=== PATIENT | female | born 1980 | race Caucasian/White ===

== ENCOUNTER 2016-11-18 15:53 | Emergency (ER) | payer MEDICARE, MEDICAID ==
--- NOTE | 2016-11-18 16:43 | ER Document Report ---
ED Medical Screen (RME) - General Chief Complaint: Abdominal Pain Stated Complaint: ABDOMINAL PAIN Notes: 35-year-old female with MS complaining of two-day history of anterior abdominal pain from the ribs down to the pelvis. Worse on the left than the right. Made worse with movement and certain positions. He also reports noticed spotting from the rectal and vaginal areas. It is difficulty passing urine, feels like she has to go all the time but there is nothing there. She has had a hysterectomy in the past. I have greeted and performed a rapid initial assessment of this patient. A comprehensive ED assessment and evaluation of the patient, analysis of test results and completion of the medical decision making process will be conducted by additional ED providers. TRAVEL OUTSIDE OF THE [place] IN LAST 30 DAYS: No - Related Data Allergies/Adverse Reactions: iodine [Iodine] Allergy (Severe, Verified 11/18/16 16:34) Anaphylaxis nitrofurantoin [From Macrobid] Allergy (Verified 11/18/16 16:34) nitrofurantoin macrocrystalline [From Macrobid] Allergy (Verified 11/18/16 16:34 ) Sulfa (Sulfonamide Antibiotics) Adverse Reaction (Intermediate, Verified 16:34) VOMITING Past Medical History Pulmonary Medical History: Reports: Hx Asthma, Hx Pneumonia - 2008 Neurological Medical History: Reports: Hx Migraine, Hx Seizures Renal/ Medical History: Denies: Hx Peritoneal Dialysis Malignancy Medical History: Reports: Hx Cervical Cancer Psychiatric Medical History: Reports: Hx Anxiety, Hx Attention Deficit Hyperactivity Disorder, Hx Bipolar Disorder Past Surgical History: Reports: Hx Abdominal Surgery - Abdominal plastic, Hx Appendectomy, Hx Gynecologic Surgery - Mass removed from Fallopian Tube;, Hx Hysterectomy - Immunizations Immunizations up to date: Yes Hx Diphtheria, Pertussis, Tetanus Vaccination: Yes Physical Exam - Vital signs Vitals: Temp Pulse Resp BP Pulse Ox 98.4 F 86 14 118/72 99 11/18/16 16:09 11/18/16 16:09 11/18/16 16:11/18/16 16:09 11/18/16 16:09 Course - Vital Signs Vital signs: Temp Pulse Resp BP Pulse Ox 98.4 F 86 14 118/72 99 11/18/16 16:09 11/18/16 16:09 11/18/16 16:09 11/18/16 16:09 11/18/16 16:09
[2016-11-18 17:17] LABS: ABSOLUTE BASOPHILS # (AUTO) 0.1 10^3/uL (0.0-0.2); ABSOLUTE EOSINOPHILS # (AUTO) 0.2 10^3/uL (0.0-0.6); ABSOLUTE LYMPHOCYTES (AUTO) 3.4 10^3/uL (0.5-4.7); ABSOLUTE MONOCYTES (AUTO) 0.7 10^3/uL (0.1-1.4); ABSOLUTE NEUT (AUTO) 6.4 10^3/uL (1.7-8.2); BASOPHILS % (AUTO) 0.6 % (0-2); EOSINOPHILS % (AUTO) 1.8 % (0-6); HEMATOCRIT 43.4 % (36.0-47.0); HEMOGLOBIN 14.8 g/dL (12.0-15.5); LYMPHOCYTES % (AUTO) 31.3 % (13-45); MEAN CORPUSCULAR HEMOGLOBIN 30.4 pg (27.0-33.4); MEAN CORPUSCULAR HGB CONC 34.2 g/dL (32.0-36.0); MEAN CORPUSCULAR VOLUME 89 fl (80-97); MONOCYTES % (AUTO) 6.4 % (3-13); RED BLOOD COUNT 4.88 10^6/uL (3.72-5.28); RED CELL DISTRIBUTION WIDTH 13.7 % (11.5-14.0); SEGMENTED NEUTROPHILS % (AUTO) 59.9 % (42-78); WHITE BLOOD COUNT 10.7 10^3/uL (4.0-10.5)
[2016-11-18 17:25] LABS: APPEARANCE,URINE SLIGHTLY-CLOUDY; BILIRUBIN,URINE NEGATIVE (NEGATIVE); GLUCOSE, URINE NEGATIVE (NEGATIVE); KETONES,URINE NEGATIVE (NEGATIVE); LEUKOCYTE ESTERASE,URINE NEGATIVE (NEGATIVE); NITRITE,URINE NEGATIVE (NEGATIVE); PROTEIN,URINE NEGATIVE (NEGATIVE); URINE SPECIFIC GRAVITY 1.014
[2016-11-18 17:36] LABS: ALANINE AMINOTRANSFERASE 22 U/L (9-52); ALBUMIN 4.4 g/dL (3.5-5.0); ALKALINE PHOSPHATASE 64 U/L (38-126); ANION GAP 15 (5-19); ASPARTATE AMINO TRANSFERASE 22 U/L (14-36); BILIRUBIN,DIRECT 0.3 mg/dL (0.0-0.4); BILIRUBIN,TOTAL 0.5 mg/dL (0.2-1.3); BLOOD UREA NITROGEN 12 mg/dL (7-20); CALCIUM 9.8 mg/dL (8.4-10.2); CARBON DIOXIDE 27 mmol/L (22-30); CHLORIDE 102 mmol/L (98-107); CREATININE RESULT 0.98 mg/dL (0.52-1.25); GLUCOSE 75 mg/dL (75-110); POTASSIUM 4.2 mmol/L (3.6-5.0); SODIUM 143.6 mmol/L (137-145); TOTAL PROTEIN 7.1 g/dL (6.3-8.2)
[2016-11-18] MEDS ORDERED: KETOROLAC TROMETHAMINE INJ/PF 30 MG/1 ML SDV IV ONE (18:51)
[2016-11-18] MEDS ORDERED: PROCHLORPERAZINE EDISYLATE INJ 10 MG/2 ML VIAL IV ONE (18:51)
[2016-11-18] MEDS ORDERED: DIPHENHYDRAMINE HCL 50 MG/ML VIAL IV ONE (18:51)
[2016-11-18] MEDS ORDERED: NORMAL SALINE 1000 ML 1,000 ML IV ONE (18:52)
--- NOTE | 2016-11-18 18:54 | ER Document Report ---
ED General - General Chief Complaint: Abdominal Pain Stated Complaint: ABDOMINAL PAIN Notes: Patient is a 35-year-old female who presents with 3 days of generalized, cramping abdominal pain. Does describe the pain as a diffuse, intermittent, severe cramping pain. Unchanged since onset. Denies a history of similar symptoms in the past. She has not seen her primary care doctor regarding today' s concerns. She notes 1 associated episode of vomiting. She has continued to have bowel movements and pass flatus of difficulty. She has also had intermittent vaginal bleeding although notes that she has a history of a hysterectomy and bilateral salpingo-oophorectomy. Nothing improves or worsens or symptoms. TRAVEL OUTSIDE OF THE [place] IN LAST 30 DAYS: No - Related Data Allergies/Adverse Reactions: iodine [Iodine] Allergy (Severe, Verified 11/18/16 16:34) Anaphylaxis nitrofurantoin [From Macrobid] Allergy (Verified 11/18/16 16:34) nitrofurantoin macrocrystalline [From Macrobid] Allergy (Verified 11/18/16 16:34 ) Sulfa (Sulfonamide Antibiotics) Adverse Reaction (Intermediate, Verified 16:34) VOMITING Past Medical History - General Information source: Patient - Social History Smoking Status: Never Smoker Frequency of alcohol use: None Drug Abuse: None Lives with: Spouse/Significant other Family History: CAD, DM, Hyperlipidemia, Hypertension, Malignancy Patient has suicidal ideation: No Patient has homicidal ideation: No Pulmonary Medical History: Reports: Hx Asthma, Hx Pneumonia - 2008 Neurological Medical History: Reports: Hx Migraine, Hx Seizures Renal/ Medical History: Denies: Hx Peritoneal Dialysis Malignancy Medical History: Reports: Hx Cervical Cancer Psychiatric Medical History: Reports: Hx Anxiety, Hx Attention Deficit Hyperactivity Disorder, Hx Bipolar Disorder Past Surgical History: Reports: Hx Abdominal Surgery - Abdominal plastic, Hx Appendectomy, Hx Gynecologic Surgery - Mass removed from Fallopian Tube;, Hx Hysterectomy - Immunizations Immunizations up to date: Yes Hx Diphtheria, Pertussis, Tetanus Vaccination: Yes Review of Systems - Review of Systems Notes: Constitutional: Negative for fever. HENT: Negative for sore throat. Eyes: Negative for visual changes. Cardiovascular: Negative for chest pain. Respiratory: Negative for shortness of breath. Gastrointestinal: Positive for abdominal pain and vomiting Genitourinary: Negative for dysuria. Musculoskeletal: Negative for back pain. Skin: Negative for rash. Neurological: Negative for headaches, weakness or numbness. 10 point ROS negative except as marked above and in HPI. Physical Exam - Vital signs Vitals: Temp Pulse Resp BP Pulse Ox 98.4 F 86 14 118/72 99 11/18/16 16:09 11/18/16 16:09 11/18/16 16:09 11/18/16 16:09 11/18/16 16:09 Interpretation: Normal Notes: PHYSICAL EXAMINATION: GENERAL: Well-appearing, well-nourished and in no acute distress. HEAD: Atraumatic, normocephalic. EYES: Pupils equal round and reactive to light, extraocular movements intact, sclera anicteric, conjunctiva are normal. ENT: nares patent, oropharynx clear without exudates. Moist mucous membranes. NECK: Normal range of motion, supple without lymphadenopathy LUNGS: Breath sounds clear to auscultation bilaterally and equal. No wheezes rales or rhonchi. HEART: Regular rate and rhythm without murmurs ABDOMEN: Soft, mildly diffuse tenderness in all quadrants without focality, normoactive bowel sounds. No guarding, no rebound. No masses appreciated. EXTREMITIES: Normal range of motion, no pitting or edema. No cyanosis. NEUROLOGICAL: No focal neurological deficits. Moves all extremities spontaneously and on command. PSYCH: Anxious SKIN: Warm, Dry, normal turgor, no rashes or lesions noted. Course - Re-evaluation Re-evalutation: 11/18/16 18:52 Patient presents with generalized abdominal pain has been present and worsening for the last 3 days. She is overall nontoxic in appearance, vitals within normal limits, laboratories are completely unremarkable. She has a history of bilateral nephrectomy and hysterectomy so pathology seems unlikely. Urinalysis is clear without evidence of pyelonephritis or hematuria to suggest acute nephrolithiasis. Clinical history likewise does not suggest any of these diagnoses. Her abdominal exam is diffusely tender without any focality. She is status post appendectomy. I do not suspect acute biliary pathology given her clinical history and exam which again shows more of a generalized pain as opposed to focal right upper quadrant pain. Is not demonstrate any hepatitis or evidence of pancreatitis. I do not suspect an acute pulmonary embolus and patient is PERC criteria negative. This screening was performed only as patient did describe some left costophrenic discomfort worsened by inspiratory effort but her generalized abdominal pain likewise points away from a PE as the cause of her discomfort today. Patient has had decreased bowel movements and has had several episodes of vomiting. Given her history of repeated abdominal surgeries a partial small bowel obstruction is a consideration and I will obtain a CT without contrast of the abdomen and pelvis to screen for this diagnosis. I do not suspect an acute mesenteric ischemia or bowel perforation again based on exam, vitals, labs and history. Patient also reports a migraine headache which she states is typical for her migraines. Her vomiting and abdominal discomfort has been present in association with this migraine it is possible that it could all be related to her initial migraine headache which she states started before her abdominal pain and vomiting. Will symptomatically treat and see if this improves her symptoms. 11/18/16 20:12 CT scan of the abdomen and pelvis is unremarkable without acute pathology. Reexam of the abdomen shows no tenderness at all at this time if patient states that she has had near complete resolution of her symptoms after receiving a migraine cocktail.At this time will discharge with return precautions and follow -up recommendations. Verbal discharge instructions given a the bedside and opportunity for questions given. Medication warnings reviewed. Patient is in agreement with this plan and has verbalized understanding of return precautions and the need for primary care follow-up in the next 24-72 hours. - Vital Signs Vital signs: Temp Pulse Resp BP Pulse Ox 98.4 F 86 14 118/72 99 11/18/16 16:09 11/18/16 16:09 11/18/16 16:09 11/18/16 16:09 11/18/16 16:09 - Laboratory Result Diagrams: 11/18/16 16:52 11/18/16 16:52 Laboratory results interpreted by me: 11/18/16 11/18/16 16:52 16:52 WBC 10.7 H Urine Blood SMALL H Urine Urobilinogen 2.0 H - Diagnostic Test Radiology reviewed: Reports reviewed Discharge - Discharge Clinical Impression: Generalized abdominal pain Migraine headache Qualifiers: Migraine type: unspecified Status migrainosus presence: with status migrainosus Intractability: not intractable Qualified Code(s): G43.901 - Migraine, unspecified, not intractable, with status migrainosus Condition: Good Disposition: HOME, SELF-CARE Additional Instructions: You have been seen in the Emergency Department (ED) for abdominal pain. Your evaluation did not identify a clear cause of your symptoms but was generally reassuring. Please follow up with your doctor as soon as possible regarding today's emergent visit and the symptoms that are bothering you. Return to the ED if your abdominal pain worsens or fails to improve, you develop bloody vomiting, bloody diarrhea, you are unable to tolerate fluids due to vomiting, fever greater than 101, or other symptoms that concern you.
[2016-11-19 06:03] VITALS: BP 111/72
== END 2016-11-18 21:16 | disposition home or self-care (01) ==
LOC: ER 15:53
DX: G43.901 Migraine, unspecified, not intractable, with status migrainosus (principal); R10.84 Generalized abdominal pain; R11.10 Vomiting, unspecified; N93.8 Other specified abnormal uterine and vaginal bleeding; Z90.710 Acquired absence of both cervix and uterus; Z90.722 Acquired absence of ovaries, bilateral; Z88.2 Allergy status to sulfonamides; Z88.3 Allergy status to other anti-infective agents; Z85.41 Personal history of malignant neoplasm of cervix uteri
CPT/HCPCS: 99284; 96361; 96374; 96375; 36415; 85025; 80053; 81001; 74176; J1200; J1885; J0780; J7030

== ENCOUNTER 2017-03-19 17:18 | Emergency (ER) | payer MEDICARE, MEDICAID ==
[2017-03-19] MEDS ORDERED: OXYCODONE-ACETAMINOPHEN 5-325 MG TABLET PO ONE (17:57)
--- NOTE | 2017-03-19 17:57 | ER Document Report ---
ED General - General Chief Complaint: Headache Stated Complaint: HEADACHE Time Seen by Provider: 03/19/17 17:53 Mode of Arrival: Ambulatory Information source: Patient Notes: 36-year-old female presents with complaints of headache 4 days post lumbar puncture for multiple sclerosis diagnosis. Patient denies any fevers or chills notes position worsens the headache patient has been taking caffeine with no improvement TRAVEL OUTSIDE OF THE [place] IN LAST 30 DAYS: No - HPI Onset: Last week Onset/Duration: Persistent Quality of pain: Achy Severity: Moderate Pain Level: Denies Associated symptoms: Headache Exacerbated by: Supine, Sitting, Standing Relieved by: Denies Similar symptoms previously: Yes Recently seen / treated by doctor: Yes - Related Data Allergies/Adverse Reactions: iodine [Iodine] Allergy (Severe, Verified 11/18/16 16:34) Anaphylaxis nitrofurantoin [From Macrobid] Allergy (Verified 11/18/16 16:34) nitrofurantoin macrocrystalline [From Macrobid] Allergy (Verified 11/18/16 16:34 ) Sulfa (Sulfonamide Antibiotics) Adverse Reaction (Intermediate, Verified 16:34) VOMITING Past Medical History - Social History Smoking Status: Never Smoker Cigarette use (# per day): No Chew tobacco use (# tins/day): No Smoking Education Provided: No Frequency of alcohol use: Occasional Drug Abuse: None Family History: CAD, DM, Hyperlipidemia, Hypertension, Malignancy Pulmonary Medical History: Reports: Hx Asthma, Hx Pneumonia - 2008 Neurological Medical History: Reports: Hx Migraine, Hx Seizures Renal/ Medical History: Denies: Hx Peritoneal Dialysis Malignancy Medical History: Reports: Hx Cervical Cancer Psychiatric Medical History: Reports: Hx Anxiety, Hx Attention Deficit Hyperactivity Disorder, Hx Bipolar Disorder Past Surgical History: Reports: Hx Abdominal Surgery - Abdominal plastic, Hx Appendectomy, Hx Gynecologic Surgery - Mass removed from Fallopian Tube;, Hx Hysterectomy - Immunizations Immunizations up to date: Yes Hx Diphtheria, Pertussis, Tetanus Vaccination: Yes Review of Systems - Review of Systems Notes: REVIEW OF SYSTEMS: CONSTITUTIONAL : Denies fever, chills, or sweats. Denies recent illness. EENT: Denies eye, ear, throat, or mouth pain or symptoms. Denies nasal or sinus congestion or discharge. Denies throat, tongue, or mouth swelling or difficulty swallowing. CARDIOVASCULAR: Denies chest pain. Denies palpitations or racing or irregular heart beat. Denies ankle edema. RESPIRATORY: Denies cough, cold, or chest congestion. Denies shortness of breath, difficulty breathing, or wheezing. GASTROINTESTINAL: Denies abdominal pain or distention. Denies nausea, vomiting , or diarrhea. Denies blood in vomitus, stools, or per rectum. Denies black, tarry stools. Denies constipation. GENITOURINARY: Denies difficulty urinating, painful urination, burning, frequency, blood in urine, or discharge. FEMALE GENITOURINARY: Denies vaginal bleeding, heavy or abnormal periods, irregular periods. Denies vaginal discharge or odor. MUSCULOSKELETAL: Denies back or neck pain or stiffness. Denies joint pain or swelling. SKIN: Denies rash, lesions or sores. HEMATOLOGIC : Denies easy bruising or bleeding. LYMPHATIC: Denies swollen, enlarged glands. NEUROLOGICAL: Admits to headache PSYCHIATRIC: Denies anxiety or stress. Denies depression, suicidal ideation, or homicidal ideation. ALL OTHER SYSTEMS REVIEWED AND NEGATIVE. PHYSICAL EXAMINATION: GENERAL: Well-appearing, well-nourished and in no acute distress. HEAD: Atraumatic, normocephalic. EYES: Pupils equal round and reactive to light, extraocular movements intact, conjunctiva are normal. ENT: Nares patent, oropharynx clear without exudates. Moist mucous membranes. NECK: Normal range of motion, supple without lymphadenopathy LUNGS: Breath sounds clear to auscultation bilaterally and equal. No wheezes rales or rhonchi. HEART: Regular rate and rhythm without murmurs ABDOMEN: Soft, nontender, nondistended abdomen. No guarding, no rebound. No masses appreciated. Female : deferred Musculoskeletal: Normal range of motion, no pitting or edema. No cyanosis. NEUROLOGICAL: Cranial nerves grossly intact. Normal speech, normal gait. Normal sensory, motor exams PSYCH: Normal mood, normal affect. SKIN: Area of ecchymosis of the L3-L4 region with no secondary signs of infection Dictation was performed using [employer] voice recognition software Course - Re-evaluation Re-evalutation: 03/19/17 17:[address] Jonas, who will perform blood patch tomorrow morning at outpatient surgery 03/19/17 19:50 Patient will be given pain control is otherwise stable for discharge After performing a Medical Screening Examination, I estimate there is LOW risk for ACUTE GLAUCOMA, TEMPORAL ARTERITIS, MENINGITIS, INCRANIAL HEMORRHAGE, or ISCHEMIC STROKE thus I consider the discharge disposition reasonable. I have reevaluated this patient multiple times and no significant life threatening changes are noted. The patient and I have discussed the diagnosis and risks, and we agree with discharging home with close follow-up with the understanding that symptoms and presentations can change. We also discussed returning to the Emergency Department immediately if new or worsening symptoms occur. We have discussed the symptoms which are most concerning (e.g., changing or worsening symptoms, new numbness or weakness, vomiting, fever) that necessitate immediate return. Discharge - Discharge Clinical Impression: Post lumbar puncture headache Condition: Stable Disposition: HOME, SELF-CARE Instructions: Headache ([facility]) Additional Instructions: Please go to the outpatient surgery tomorrow morning to be seen by Anesthesiologist for blood patch Prescriptions: Oxycodone HCl/Acetaminophen [Percocet 5-325 mg Tablet] 1 - 2 tab PO Q4H PRN #15 tablet PRN Reason:
== END 2017-03-19 18:10 | disposition home or self-care (01) ==
LOC: ER 17:18
DX: G97.1 Other reaction to spinal and lumbar puncture (principal); Y84.4 Aspiration of fluid as the cause of abnormal reaction of the patient, or of later complication, without mention of misadventure at the time of the procedure; G35 Multiple sclerosis; J45.909 Unspecified asthma, uncomplicated; Z88.1 Allergy status to other antibiotic agents; Z88.2 Allergy status to sulfonamides; Z85.41 Personal history of malignant neoplasm of cervix uteri
CPT/HCPCS: 99283; A9270

== ENCOUNTER 2017-03-20 08:17 | Day surgery (SDC) | payer MEDICARE, MEDICAID ==
[2017-03-20 10:11] VITALS: BP 111/74
== END 2017-03-20 10:14 | disposition home or self-care (01) ==
LOC: ASU 08:17
PROVIDERS: ATTEND Anesthesiology
PROC: 009U3ZX Drainage of Spinal Canal, Percutaneous Approach, Diagnostic (ICD-10-PCS; principal; 2017-03-20)
DX: G35 Multiple sclerosis (principal); Z88.2 Allergy status to sulfonamides
CPT/HCPCS: 62273

== ENCOUNTER 2017-03-21 12:49 | Emergency (ER) | payer MEDICARE, MEDICAID ==
[2017-03-21] MEDS ORDERED: MORPHINE SULFATE 10 MG/ML INJ IV ONE ×2 (13:16→15:01)
[2017-03-21] MEDS ORDERED: ONDANSETRON HCL INJ/PF 4 MG/2 ML SDV IV ONE (13:16)
--- NOTE | 2017-03-21 13:16 | ER Document Report ---
ED Medical Screen (RME) - General Chief Complaint: Headache Stated Complaint: HEADACHE Time Seen by Provider: 03/21/17 13:14 Notes: Patient states that she had a lumbar puncture done to at [facility]. After this she developed severe headache and low back pain. She states she was seen at [facility] here in [place] yesterday and had a blood patch placed. She states this only provided relief for about 15 minutes. Patient states she did get up and move around and has not been lying flat. She states she is also taking Percocet at home but these are not helping. TRAVEL OUTSIDE OF THE [place] IN LAST 30 DAYS: No - Related Data Allergies/Adverse Reactions: iodine [Iodine] Allergy (Severe, Verified 03/21/17 12:53) Anaphylaxis nitrofurantoin [From Macrobid] Allergy (Verified 03/21/17 12:53) nitrofurantoin macrocrystalline [From Macrobid] Allergy (Verified 03/21/17 12:53 ) Sulfa (Sulfonamide Antibiotics) Adverse Reaction (Intermediate, Verified 12:53) VOMITING Home Medications: Current Home Medications Amitriptyline HCl [Elavil 50 mg Tablet] 50 PO QHS 03/21/17 [History] Oxycodone HCl/Acetaminophen [Percocet 5-325 mg Tablet] 03/21/17 [History] Past Medical History - Past Medical History Cardiac Medical History: Denies: Hx Coronary Artery Disease, Hx Heart Attack, Hx Hypertension Pulmonary Medical History: Reports: Hx Asthma, Hx Pneumonia - 2008 Denies: Hx Bronchitis, Hx COPD Neurological Medical History: Reports: Hx Migraine, Hx Seizures. Denies: Hx Cerebrovascular Accident Renal/ Medical History: Denies: Hx Peritoneal Dialysis Malignancy Medical History: Reports: Hx Cervical Cancer Musculoskeltal Medical History: Denies Hx Arthritis Psychiatric Medical History: Reports: Hx Anxiety, Hx Attention Deficit Hyperactivity Disorder, Hx Bipolar Disorder Past Surgical History: Reports: Hx Abdominal Surgery - Abdominal plastic, Hx Appendectomy, Hx Gynecologic Surgery - Mass removed from Fallopian Tube;, Hx Hysterectomy - Immunizations Immunizations up to date: Yes Hx Diphtheria, Pertussis, Tetanus Vaccination: Yes Physical Exam - Vital signs Vitals: Temp Pulse Resp BP Pulse Ox 98.8 F 88 16 120/84 100 03/21/17 12:54 03/21/17 12:54 03/21/17 12:54 03/21/17 12:54 03/21/17 12:54 Course - Vital Signs Vital signs: Temp Pulse Resp BP Pulse Ox 98.8 F 88 16 120/84 100 03/21/17 12:54 03/21/17 12:54 03/21/17 12:54 03/21/17 12:54 03/21/17 12:54
[2017-03-21] MEDS: NORMAL SALINE 1000 ML 1,000 ML IV PRN ×2 (13:38→15:20)
[2017-03-21 13:45] LABS: ABSOLUTE BASOPHILS # (AUTO) 0.1 10^3/uL (0.0-0.2); ABSOLUTE EOSINOPHILS # (AUTO) 0.1 10^3/uL (0.0-0.6); ABSOLUTE MONOCYTES (AUTO) 0.7 10^3/uL (0.1-1.4); ABSOLUTE NEUT (AUTO) 8.6 10^3/uL (1.7-8.2); BASOPHILS % (AUTO) 0.4 % (0-2); HEMATOCRIT 45.7 % (36.0-47.0); HEMOGLOBIN 15.3 g/dL (12.0-15.5); HGB HCT DIFFERENCE 0.2; MEAN CORPUSCULAR HEMOGLOBIN 30.3 pg (27.0-33.4); MEAN CORPUSCULAR HGB CONC 33.6 g/dL (32.0-36.0); MEAN CORPUSCULAR VOLUME 90 fl (80-97); MONOCYTES % (AUTO) 5.5 % (3-13); RED BLOOD COUNT 5.06 10^6/uL (3.72-5.28); RED CELL DISTRIBUTION WIDTH 12.9 % (11.5-14.0); SEGMENTED NEUTROPHILS % (AUTO) 69.1 % (42-78); WHITE BLOOD COUNT 12.5 10^3/uL (4.0-10.5)
[2017-03-21 13:49] LABS: APPEARANCE,URINE SLIGHTLY-CLOUDY; BILIRUBIN,URINE NEGATIVE (NEGATIVE); GLUCOSE, URINE NEGATIVE (NEGATIVE); KETONES,URINE NEGATIVE (NEGATIVE); LEUKOCYTE ESTERASE,URINE NEGATIVE (NEGATIVE); NITRITE,URINE NEGATIVE (NEGATIVE); PROTEIN,URINE NEGATIVE (NEGATIVE); URINE SPECIFIC GRAVITY 1.008; UROBILINOGEN,URINE NEGATIVE mg/dL (<2.0)
[2017-03-21 13:56] LABS: ANION GAP 10 (5-19); BLOOD UREA NITROGEN 10 mg/dL (7-20); CALCIUM 10.6 mg/dL (8.4-10.2); CARBON DIOXIDE 31 mmol/L (22-30); CHLORIDE 101 mmol/L (98-107); CREATININE RESULT 0.78 mg/dL (0.52-1.25); GLUCOSE 91 mg/dL (75-110); POTASSIUM 4.4 mmol/L (3.6-5.0); SODIUM 142.4 mmol/L (137-145)
--- NOTE | 2017-03-21 14:43 | ER Document Report ---
ED Headache - General Chief Complaint: Headache Stated Complaint: HEADACHE Time Seen by Provider: 03/21/17 13:14 Mode of Arrival: Ambulatory Information source: Patient TRAVEL OUTSIDE OF THE [place] IN LAST 30 DAYS: No - HPI Patient complains to provider of: Headache Patient reports: Hx chronic headaches Onset: Last week Onset was: Gradual Timing: Still present Quality of pain: Achy, Pressure Severity: Moderate Pain Level: 4 Associated symptoms: Lightheaded, Nausea/vomiting Exacerbated by: Movement, Position Similar symptoms previously: Yes Recently seen / treated by doctor: Yes Notes: Patient is a 36-year-old female presenting to the emergency room complaining of headache that started last after having a lumbar puncture, states she was seen at [facility] in [place] for evaluation with the neurologist regarding possible and, therefore she had the lumbar puncture performed, is actually seen yesterday at this facility and had a blood patch performed as an outpatient, she reports that this provided her absolutely no relief, she reports nausea and vomiting but denies a fever, no neck stiffness, she is reporting some sensation of numbness or tingling or weakness that started out on the left side after the lumbar puncture but is now on the right side since having the blood patch, she denies any sinus congestion, she does report a history of migraine headaches in the past but this seems different - Related Data Allergies/Adverse Reactions: iodine [Iodine] Allergy (Severe, Verified 03/21/17 12:53) Anaphylaxis nitrofurantoin [From Macrobid] Allergy (Verified 03/21/17 12:53) nitrofurantoin macrocrystalline [From Macrobid] Allergy (Verified 03/21/17 12:53 ) Sulfa (Sulfonamide Antibiotics) Adverse Reaction (Intermediate, Verified 12:53) VOMITING Home Medications: Current Home Medications Amitriptyline HCl [Elavil 50 mg Tablet] 50 PO QHS 03/21/17 [History] Oxycodone HCl/Acetaminophen [Percocet 5-325 mg Tablet] 03/21/17 [History] Past Medical History - General Information source: Patient - Social History Smoking Status: Never Smoker Family History: CAD, DM, Hyperlipidemia, Hypertension, Malignancy Patient has suicidal ideation: No Patient has homicidal ideation: No - Past Medical History Cardiac Medical History: Denies: Hx Coronary Artery Disease, Hx Heart Attack, Hx Hypertension Pulmonary Medical History: Reports: Hx Asthma, Hx Pneumonia - 2009 Denies: Hx Bronchitis, Hx COPD Neurological Medical History: Reports: Hx Migraine, Hx Seizures. Denies: Hx Cerebrovascular Accident Renal/ Medical History: Denies: Hx Peritoneal Dialysis Malignancy Medical History: Reports: Hx Cervical Cancer Musculoskeltal Medical History: Denies Hx Arthritis Psychiatric Medical History: Reports: Hx Anxiety, Hx Attention Deficit Hyperactivity Disorder, Hx Bipolar Disorder Past Surgical History: Reports: Hx Abdominal Surgery - Abdominal plastic, Hx Appendectomy, Hx Gynecologic Surgery - Mass removed from Fallopian Tube;, Hx Hysterectomy - Immunizations Immunizations up to date: Yes Hx Diphtheria, Pertussis, Tetanus Vaccination: Yes Review of Systems - Review of Systems Constitutional: No symptoms reported EENT: No symptoms reported Cardiovascular: No symptoms reported Respiratory: No symptoms reported Gastrointestinal: Nausea, Vomiting Genitourinary: No symptoms reported Female Genitourinary: No symptoms reported Musculoskeletal: No symptoms reported Skin: No symptoms reported Hematologic/Lymphatic: No symptoms reported Neurological/Psychological: Headaches -: Yes All other systems reviewed and negative Physical Exam - Vital signs Vitals: Temp Pulse Resp BP Pulse Ox 98.8 F 88 16 120/84 100 03/21/17 12:54 03/21/17 12:54 03/21/17 12:54 03/21/17 12:54 03/21/17 12:54 Interpretation: Normal - General General appearance: Appears well, Alert - HEENT Head: Normocephalic, Atraumatic Eyes: Normal Pupils: PERRL - Respiratory Respiratory status: No respiratory distress Chest status: Nontender Breath sounds: Normal Chest palpation: Normal - Cardiovascular Rhythm: Regular Heart sounds: Normal auscultation Murmur: No - Abdominal Inspection: Normal Distension: No distension Bowel sounds: Normal Tenderness: Nontender Organomegaly: No organomegaly - Back Back: Normal, Nontender - Extremities General upper extremity: Normal inspection, Nontender, Normal color, Normal ROM , Normal temperature General lower extremity: Normal inspection, Nontender, Normal color, Normal ROM , Normal temperature, Normal weight bearing. No: Di's sign - Neurological Neuro grossly intact: Yes Cognition: Normal Orientation: AAOx4 Clyo Coma Scale Eye Opening: Spontaneous Clyo Coma Scale Verbal: Oriented Myranda Coma Scale Motor: Obeys Commands Clyo Coma Scale Total: 15 Speech: Normal Motor strength normal: LUE, RUE, LLE, RLE Sensory: Normal - Psychological Associated symptoms: Normal affect, Normal mood - Skin Skin Temperature: Warm Skin Moisture: Dry Skin Color: Normal Course - Re-evaluation Re-evalutation: 03/21/17 14:43 A call was placed to [facility] transfer center, requested a call back from neurology team regarding patient's continued intractable headache 03/21/17 15:11 Patient was discussed with Dr. Te Stephenson, neurologist at [facility], recommends that patient increase her oral caffeine intake, and follow-up as an outpatient as she does not require emergent transfer at this time, does not believe her symptoms to be related to post LP headache at this point 03/21/17 16:10 Patient resting comfortably, reports feeling much better, will be provided with prescriptions for symptomatic relief and advised to follow-up with her neurologist in 1-2 days or return if symptoms worsen, patient acknowledges understanding and agreement with this plan - Vital Signs Vital signs: Temp Pulse Resp BP Pulse Ox 97.4 F 85 18 105/72 98 03/21/17 16:24 03/21/17 16:24 03/21/17 16:24 03/21/17 16:24 03/21/17 16:24 - Laboratory Result Diagrams: 03/21/17 13:26 03/21/17 13:26 Laboratory results interpreted by me: 03/21/17 03/21/17 13:26 13:26 WBC 12.5 H Absolute Neutrophils 8.6 H Carbon Dioxide 31 H Calcium 10.6 H Discharge - Discharge Clinical Impression: Migraine headache Qualifiers: Migraine type: other Status migrainosus presence: with status migrainosus Intractability: intractable Qualified Code(s): G43.811 - Other migraine, intractable, with status migrainosus Condition: Stable Disposition: HOME, SELF-CARE Instructions: Antinausea Medication ([facility]), Headache ([facility]), Oral Narcotic Medication ([facility]) Additional Instructions: Follow up with your primary care provider and neurologist in one to 2 days. Return to the emergency room immediately if symptoms worsen or any additional concerns. Prescriptions: Hydrocodone/Acetaminophen [Hydrocodon-Acetaminophen 5-325] 1 each PO Q6 #14 tablet Metoclopramide HCl [Reglan 10 mg Tablet] 1 - 2 tab PO ASDIR PRN #25 tablet PRN Reason: Forms: Return to Work
[2017-03-21] MEDS ORDERED: NORMAL SALINE 1000 ML 1,000 ML IV PRN (14:50)
[2017-03-21] MEDS ORDERED: MECLIZINE HCL 25 MG TABLET PO ONE (15:01)
[2017-03-21] MEDS ORDERED: METOCLOPRAMIDE HCL INJ/PF 10 MG/2 ML SDV IV ONE (15:01)
[2017-03-21] MEDS ORDERED: DIPHENHYDRAMINE HCL 50 MG/ML VIAL IV ONE (15:01)
[2017-03-21 16:26] VITALS: BP 105/72
== END 2017-03-21 16:26 | disposition home or self-care (01) ==
LOC: ER 12:49
DX: G43.811 Other migraine, intractable, with status migrainosus (principal); Z98.890 Other specified postprocedural states; R11.2 Nausea with vomiting, unspecified; J45.909 Unspecified asthma, uncomplicated; Z88.1 Allergy status to other antibiotic agents; Z87.892 Personal history of anaphylaxis; Z85.41 Personal history of malignant neoplasm of cervix uteri
CPT/HCPCS: 96376; 99283; 96361; 96374; 96375; 36415; 85025; 80048; 81001; J1200; A9270; J2765; J2270; J2405; J7030

== ENCOUNTER 2018-01-23 20:50 | Emergency (ER) | payer MEDICARE, MEDICAID ==
[2018-01-23] MEDS ORDERED: OXYCODONE-ACETAMINOPHEN 5-325 MG TABLET PO ONE (22:15)
--- NOTE | 2018-01-23 22:23 | ER Document Report ---
ED Hand/Wrist Injury - General Chief Complaint: Fall Injury Stated Complaint: RIGHT ARM PAIN Time Seen by Provider: 01/23/18 22:03 Mode of Arrival: Ambulatory Information source: Patient, COUNT INCLUDES THE [facility] Records Notes: 37-year-old female patient comes emerged from complaining of injury to her right wrist and hand. She was carrying groceries into the house with grocery bags in both hands when her wet shoes slipped in her feet went out from under her causing her to fall and strike her right dorsal hand and wrist against a door frame. This occurred just prior to arrival. She is complaining of pain to the wrist and going into the right fourth and fifth fingers. TRAVEL OUTSIDE OF THE [place] IN LAST 30 DAYS: No - Related Data Allergies/Adverse Reactions: iodine [Iodine] Allergy (Severe, Verified 01/23/18 20:51) Anaphylaxis nitrofurantoin [From Macrobid] Allergy (Verified 01/23/18 20:51) nitrofurantoin macrocrystalline [From Macrobid] Allergy (Verified 01/23/18 20:51 ) Sulfa (Sulfonamide Antibiotics) Adverse Reaction (Intermediate, Verified 20:51) VOMITING Past Medical History - General Information source: Patient, COUNT INCLUDES THE [facility] Records - Social History Smoking Status: Unknown if Ever Smoked Cigarette use (# per day): No Chew tobacco use (# tins/day): No Smoking Education Provided: No Frequency of alcohol use: None Drug Abuse: None Lives with: Family Family History: CAD, DM, Hyperlipidemia, Hypertension, Malignancy Patient has suicidal ideation: No Patient has homicidal ideation: No - Past Medical History Cardiac Medical History: Reports: None Pulmonary Medical History: Reports: Hx Asthma, Hx Pneumonia - 2008 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 Neurological Medical History: Reports: Hx Migraine, Hx Seizures Endocrine Medical History: Reports: None Renal/ Medical History: Reports: None Malignancy Medical History: Reports: Hx Cervical Cancer GI Medical History: Reports: None Musculoskeltal Medical History: Reports None Psychiatric Medical History: Reports: Hx Anxiety, Hx Attention Deficit Hyperactivity Disorder, Hx Bipolar Disorder Past Surgical History: Reports: Hx Abdominal Surgery - Abdominal plastic, Hx Appendectomy, Hx Gynecologic Surgery - Mass removed from Fallopian Tube;, Hx Hysterectomy - Immunizations Immunizations up to date: Yes Hx Diphtheria, Pertussis, Tetanus Vaccination: Yes Review of Systems - Review of Systems Constitutional: No symptoms reported EENT: Other - Wears glasses Cardiovascular: No symptoms reported Respiratory: No symptoms reported Gastrointestinal: No symptoms reported Genitourinary: No symptoms reported Musculoskeletal: No symptoms reported Skin: No symptoms reported Hematologic/Lymphatic: No symptoms reported Neurological/Psychological: Headaches Physical Exam - General General appearance: Appears well, Alert In distress: Mild - HEENT Head: Normocephalic, Atraumatic Eyes: Normal Pupils: PERRL - Respiratory Respiratory status: No respiratory distress - Cardiovascular Rhythm: Regular - Abdominal Inspection: Normal - Back Back: Normal - Extremities General upper extremity: Other - There is tenderness to palpate the right dorsal and ventral wrist without swelling. There is tenderness over the right fifth metacarpal head and between the fourth and fifth metacarpal heads without swelling or bruising noted. There is no deformity of the fingers noted. General lower extremity: Normal inspection - Neurological Neuro grossly intact: Yes - Psychological Associated symptoms: Normal affect, Normal mood - Skin Skin Temperature: Warm Skin Moisture: Dry Skin Color: Normal Course - Diagnostic Test Radiology reviewed: Image reviewed, Reports reviewed - X-rays of the right wrist and hand did not show any abnormality. Discharge - Discharge Clinical Impression: Wrist pain, right Contusion of right hand Qualifiers: Encounter type: initial encounter Qualified Code(s): S60.221A - Contusion of right hand, initial encounter Fall from slipping Qualifiers: Encounter type: initial encounter Qualified Code(s): W01.0XXA - Fall on same level from slipping, tripping and stumbling without subsequent striking against object, initial encounter Condition: Stable Disposition: HOME, SELF-CARE Additional Instructions: Contusion Your injury has resulted in a contusion -- a crushing of the deep tissues. No injury to important structures was detected during the physician's exam. Contusions vary in the amount of pain they cause, and in the length of time required for healing. Typically, the area will become bruised, and will remain painful to touch for two or three weeks. However, most patients are back to working and playing within a few days. After the initial period of rest and cold-packs, your symptoms (together with the doctor's recommendations) will determine how rapidly you can get back to full activity. Usually this means "do what feels okay, but don't do things that hurt." If re-examination was recommended, it's important to follow up as instructed. Call the doctor or return any time if pain increases, if swelling becomes severe, if you develop numbness or weakness in an injured extremity, or if any other alarming symptoms occur. There were no fractures seen on the x-rays of your wrist and hand and fingers. You most likely suffered a mild contusion to the dorsal right hand. You should elevate your hand, use ice packs tonight, and limit using the hand for a few days. Take Tylenol and ibuprofen for pain if needed. Follow-up with your medical doctor if not improving. RETURN TO THE EMERGENCY ROOM IF ANY NEW OR WORSENING SYMPTOMS. Forms: Return to Work
--- NOTE | 2018-01-23 22:43 | RADIOLOGY REPORT (SQ) ---
EXAM DESCRIPTION: XR WRIST 3 OR MORE VIEWS BILATERAL COMPLETED DATE/TME: 01/23/2018 22:15 EXAM DESCRIPTION: CLINICAL HISTORY: Fall, struck right hand and wrist COMPARISON: None FINDINGS: 3 view(s) submitted. No fracture or dislocation is identified. Bone marrow attenuation is unremarkable. No radiopaque foreign body is identified. IMPRESSION: No acute fracture or dislocation.
--- NOTE | 2018-01-23 23:46 | RADIOLOGY REPORT (SQ) ---
EXAM DESCRIPTION: XR HAND 3 OR MORE VIEWS COMPLETED DATE/TME: 01/23/2018 23:26 CLINICAL HISTORY: 37 years, Female, Doorframe, pain over fifth medical carpal head COMPARISON: 12/02/2015 FINDINGS: 3 views of the right hand. No acute fracture or dislocation. Normal osseous mineralization. IMPRESSION: No acute fracture or dislocation. 2010 [employer]- All Rights Reserved
[2018-01-24 00:16] VITALS: BP 114/71
== END 2018-01-24 00:17 | disposition home or self-care (01) ==
LOC: ER 20:50
DX: S60.221A Contusion of right hand, initial encounter (principal); W01.0XXA Fall on same level from slipping, tripping and stumbling without subsequent striking against object, initial encounter; Z90.710 Acquired absence of both cervix and uterus; Z88.2 Allergy status to sulfonamides
CPT/HCPCS: 99283; 73130; 73110; A9270

== ENCOUNTER 2018-01-24 16:04 | Emergency (ER) | payer MEDICARE, MEDICAID ==
[2018-01-24 16:11] VITALS: BP 109/73
--- NOTE | 2018-01-24 17:08 | ER Document Report ---
HPI - HPI Patient complains to provider of: Right hand pain Pain Level: 5 Context: 37-year-old female patient c/o pain to her right wrist and hand. She was carrying groceries into the house with grocery bags in both hands when her wet shoes slipped in her feet went out from under her causing her to fall and strike her right dorsal hand and wrist against a door frame. Patient was seen in the emergency department yesterday for same complaint. Negative x-rays of hand and wrist. Patient reports that the Tylenol and ibuprofen are not helping the pain. Associated Symptoms: None Exacerbated by: Denies Relieved by: Denies Similar symptoms previously: Yes Recently seen / treated by doctor: Yes - ROS Systems Reviewed and Negative: Yes All other systems reviewed and negative - REPRODUCTIVE Reproductive: DENIES: : - MUSCULOSKELETAL Musculoskeletal: REPORTS: Extremity pain Past Medical History - General Information source: Patient - Social History Smoking Status: Current Every Day Smoker Frequency of alcohol use: None Drug Abuse: None Lives with: Family Family History: CAD, DM, Hyperlipidemia, Hypertension, Malignancy Patient has suicidal ideation: No Patient has homicidal ideation: No - Past Medical History Cardiac Medical History: Denies: Hx Heart Attack, Hx Hypertension Pulmonary Medical History: Reports: Hx Asthma, Hx Pneumonia - 2008 Denies: Hx Bronchitis, Hx COPD Neurological Medical History: Reports: Hx Migraine, Hx Seizures Renal/ Medical History: Denies: Hx Peritoneal Dialysis Malignancy Medical History: Reports: Hx Cervical Cancer Musculoskeltal Medical History: Denies Hx Arthritis Psychiatric Medical History: Reports: Hx Anxiety, Hx Attention Deficit Hyperactivity Disorder, Hx Bipolar Disorder Past Surgical History: Reports: Hx Abdominal Surgery - Abdominal plastic, Hx Appendectomy, Hx Gynecologic Surgery - Mass removed from Fallopian Tube;, Hx Hysterectomy - Immunizations Immunizations up to date: Yes Hx Diphtheria, Pertussis, Tetanus Vaccination: Yes Vertical Provider Document - CONSTITUTIONAL Agree With Documented VS: Yes Exam Limitations: No Limitations - INFECTION CONTROL TRAVEL OUTSIDE OF THE [place] IN LAST 30 DAYS: No - HEENT HEENT: Atraumatic, PERRLA - NECK Neck: Normal Inspection, Supple - RESPIRATORY Respiratory: Breath Sounds Normal, No Respiratory Distress - MUSCULOSKELETAL/EXTREMETIES Musculoskeletal/Extremeties: Tender - focal tenderness over right 5th metacarpal. no edema or echymosis. SMC intact - NEURO Level of Consciousness: Awake, Alert, Appropriate Course - Re-evaluation Re-evalutation: 01/24/18 17:06 Wrist and hand x-rays were reviewed from yesterday. Negative for acute fracture. These results reviewed with the patient. Tu wrap will be applied in short course of Ultram provided for discomfort LOW risk for OPEN FRACTURE, COMPARTMENT SYNDROME, DEEP VENOUS THROMBOSIS, ACUTE TENDON RUPTURE, or NEUROVASCULAR INJURY thus I consider the discharge disposition reasonable. I have reevaluated this patient multiple times and no significant life threatening changes are noted. The patient and I have discussed the diagnosis and risks, and we agree with discharging home to closely follow-up with their primary doctor or the referral orthopedist with the understanding that symptoms and presentations can change. We also discussed returning to the Emergency Department immediately if new or worsening symptoms occur. We have discussed the symptoms which are most concerning (e.g., changing or worsening pain, numbness, weakness) that necessitate immediate return - Vital Signs Vital signs: Temp Pulse Resp BP Pulse Ox 98.6 F 83 16 109/73 98 01/24/18 16:09 01/24/18 16:09 01/24/18 16:09 01/24/18 16:09 01/24/18 16:09 Procedures - Immobilization right hand Pre-Proc Neuro Vasc Exam: Normal Immobilizer type: Tu wrap Post-Proc Neuro Vasc Exam: Normal Alignment checked and good: Yes Discharge - Discharge Clinical Impression: Contusion of right hand Qualifiers: Encounter type: initial encounter Qualified Code(s): S60.221A - Contusion of right hand, initial encounter Condition: Stable Disposition: HOME, SELF-CARE Instructions: Contusion ([facility]), Tu Wrap ([facility]), Ice & Elevation ([facility]), Ultram ( [facility]) Prescriptions: Tramadol HCl [Ultram 50 mg Tablet] 50 mg PO Q4HP PRN #20 tab PRN Reason: Referrals: WILLI MCCORD PA-C [Primary Care Provider] - Follow up as needed
== END 2018-01-24 17:14 | disposition home or self-care (01) ==
LOC: ER 16:04
DX: S60.221A Contusion of right hand, initial encounter (principal); M79.641 Pain in right hand; M25.531 Pain in right wrist; W01.0XXA Fall on same level from slipping, tripping and stumbling without subsequent striking against object, initial encounter; F17.200 Nicotine dependence, unspecified, uncomplicated; J45.909 Unspecified asthma, uncomplicated
CPT/HCPCS: 99283

== ENCOUNTER 2018-03-23 10:26 | Emergency (ER) | payer MEDICARE, MEDICAID ==
[2018-03-23 10:31] VITALS: BP 119/77
[2018-03-23] MEDS ORDERED: DIPH/PERTUSS(ACELL)/TETANUS VAC/PF 0.5 ML SYR (>=10YO) IM ONE (10:35)
[2018-03-23] MEDS ORDERED: OXYCODONE-ACETAMINOPHEN 5-325 MG TABLET PO ONE (10:36)
[2018-03-23] MEDS ORDERED: ONDANSETRON 4 MG TAB.RAPDIS PO ONE (10:36)
--- NOTE | 2018-03-23 10:55 | ER Document Report ---
ED Medical Screen (RME) - General Chief Complaint: Burn Stated Complaint: LEG INJURY Time Seen by Provider: 03/23/18 10:32 Mode of Arrival: Ambulatory Information source: Patient TRAVEL OUTSIDE OF THE [place] IN LAST 30 DAYS: No - HPI Patient complains to provider of: Coffee burn Onset: Other - This 37-year-old female with a history of deafness presents for evaluation of coffee marmolejo over the lower extremities after spilling some coffee on her legs upon arriving at work. She had pain immediately thereafter, subsequently drove to the emergency department because of the pain and the sensation that she was losing skin over the legs. She denies any inhalational component any marmolejo elsewhere, she is uncertain when her last tetanus shot was. Is uncertain whether or not it touched her crotch. - Related Data Allergies/Adverse Reactions: iodine [Iodine] Allergy (Severe, Verified 01/24/18 16:05) Anaphylaxis nitrofurantoin [From Macrobid] Allergy (Verified 01/24/18 16:05) nitrofurantoin macrocrystalline [From Macrobid] Allergy (Verified 01/24/18 16:05 ) Sulfa (Sulfonamide Antibiotics) Adverse Reaction (Intermediate, Verified 16:05) VOMITING Past Medical History - General Information source: Patient - Social History Chew tobacco use (# tins/day): No Frequency of alcohol use: None Drug Abuse: None - Past Medical History Cardiac Medical History: Denies: Hx Heart Attack, Hx Hypertension Pulmonary Medical History: Reports: Hx Asthma, Hx Pneumonia - 2008 Denies: Hx Bronchitis, Hx COPD Neurological Medical History: Reports: Hx Migraine, Hx Seizures Renal/ Medical History: Denies: Hx Peritoneal Dialysis Malignancy Medical History: Reports: Hx Cervical Cancer Musculoskeltal Medical History: Denies Hx Arthritis Psychiatric Medical History: Reports: Hx Anxiety, Hx Attention Deficit Hyperactivity Disorder, Hx Bipolar Disorder Past Surgical History: Reports: Hx Abdominal Surgery - Abdominal plastic, Hx Appendectomy, Hx Gynecologic Surgery - Mass removed from Fallopian Tube;, Hx Hysterectomy - Immunizations Immunizations up to date: Yes Hx Diphtheria, Pertussis, Tetanus Vaccination: Yes Review of Systems - Review of Systems Respiratory: See HPI Gastrointestinal: See HPI Genitourinary: See HPI Skin: See HPI Neurological/Psychological: See HPI Physical Exam - Vital signs Vitals: Temp Pulse Resp BP Pulse Ox 98.3 F 104 H 16 119/77 100 08/24/18 10:30 03/23/18 10:30 03/23/18 10:30 03/23/18 10:30 03/23/18 10:30 - General General appearance: Appears well In distress: Mild - HEENT Head: Normocephalic Eyes: Normal Conjunctiva: Normal Mucous membranes: Normal Pharynx: Normal - Respiratory Respiratory status: No respiratory distress Chest status: Nontender Breath sounds: Normal Chest palpation: Normal - Cardiovascular Rhythm: Regular Heart sounds: Normal auscultation Murmur: No - Abdominal Inspection: Normal Distension: No distension Tenderness: Nontender - Genitourinary External exam: Other - There is a small first-degree burn involving the mons pubis, no loss of skin no blistering - Back Back: Normal - Extremities General upper extremity: Normal inspection General lower extremity: Other - The lower extremities are symmetric, starting at the proximal aspect of the quadriceps bilaterally there is appreciable erythema which is blanchable, there is no loss of skin no blistering, it covers both quadriceps, it is not circumferential spares the labia does involve the mons pubis - Neurological Neuro grossly intact: Yes Cognition: Normal Orientation: AAOx4 Course - Re-evaluation Re-evalutation: 03/23/18 10:54 This woman spilled hot coffee on her lap several minutes after obtaining the cup , she immediately presented here after. On examination she has a first-degree burn which extends over the majority of her left quadriceps as well as the majority of her right quadriceps, it is noncircumferential, there is no loss of skin no blistering, it does not involve the labia, it does involve the mons pubis. This is consistent with a first- degree burn. With oil field rig builder present performed an examination of the patient's inguinal crease and suprapubic area as well as mons pubis. Patient has first-degree marmolejo extending over the bilateral quadriceps. This woman does not know when her last tetanus shot was believes it is probably around 6 years prior. On recheck this patient is very well-appearing, she has had improvement in her pain, continues to have no loss of skin consistent with a first-degree burn. She does not have any genital marmolejo, she is otherwise well-appearing at this time will update tetanus will plan for administration of analgesia will plan for a 3 day wound check with her primary care physician. Will give work note for today. Encouraged to follow-up with her primary physician on Monday for wound check. 03/23/18 11:09 - Vital Signs Vital signs: Temp Pulse Resp BP Pulse Ox 98.3 F 104 H 16 119/77 100 03/23/18 10:30 03/23/18 10:30 03/23/18 10:30 03/23/18 10:30 03/23/18 10:30 Doctor's Discharge - Discharge Clinical Impression: Burn, Occasional coffee drinker Condition: Good Disposition: HOME, SELF-CARE Instructions: Marmolejo (OM), Oral Narcotic Medication ([facility]), Soap Cleansing ([facility]) , Tetanus Immunization Given ([facility]) Additional Instructions: You were seen today for your marmolejo, you should contact your doctor today for an appointment Monday or Monday for a check of the wounds. Use gentle cleansing with normal soap and water and pat dry the wounds. Taken normal shower with tepid water today. Use the narcotic pain medication prescribed you only as needed. Also use MiraLAX to help prevent constipation. Return for worsening pain swelling or loss of skin fevers or chills. Prescriptions: Hydrocodone/Acetaminophen [[place] 5-325 mg Tablet] 1 tab PO Q8H PRN #10 tablet PRN Reason: For Pain Scale 4-5 Polyethylene Glycol 3350 [Miralax Powder 17 gm/Packet] 1 packet PO DAILY #1 pkg Forms: Special Work Note Referrals: WILLI MCCORD PA-C [Primary Care Provider] - Follow up as needed
== END 2018-03-23 11:16 | disposition home or self-care (01) ==
LOC: ER 10:26
DX: T24.112A Burn of first degree of left thigh, initial encounter (principal); T24.111A Burn of first degree of right thigh, initial encounter; T21.17XA Burn of first degree of female genital region, initial encounter; X10.0XXA Contact with hot drinks, initial encounter; Y93.89 Activity, other specified; Z23 Encounter for immunization
CPT/HCPCS: 99283; 90471; 90715; A9270 ×2; S0119

== ENCOUNTER → 2018-04-06 | Outpatient (CLI) | payer MEDICARE, MEDICAID ==
[2018-04-06 13:12] LABS: BACTERIA (WET MOUNT) 4+ BACTERIA SEEN; EPITHELIALS (WET MOUNT) 4+ EPITHELIALS SEEN; T.VAGINALIS (WET MOUNT) NO TRICHOMONAS SEEN; WBCS (WET MOUNT) 2+ WBCS SEEN; YEAST (WET MOUNT) NO YEAST SEEN
[2018-04-06 14:47] LABS: CHLAM PCR NOT DETECTED (NOT DETECT); GON PCR NOT DETECTED (NOT DETECT)
== END ==
LOC: LAB 12:40
PROVIDERS: ATTEND Nurse Practitioner Family
DX: R10.9 Unspecified abdominal pain (principal); R30.0 Dysuria
CPT/HCPCS: 87086; 87210; 87491; 87591

== ENCOUNTER → 2019-01-16 | Outpatient (CLI) | payer MEDICARE, MEDICAID | LOC: LAB 16:22 | PROVIDERS: ATTEND Nurse Practitioner Family | DX: R30.0 Dysuria (principal) | CPT/HCPCS: 87086 ==

== ENCOUNTER 2019-05-21 21:37 | Emergency (ER) | payer MEDICARE, MEDICAID ==
--- NOTE | 2019-05-21 22:05 | ER Document Report ---
ED General - General Chief Complaint: Chest Pain Stated Complaint: CHEST PAIN Time Seen by Provider: 05/21/19 22:00 Primary Care Provider: SADE MOORE FNP-C [Primary Care Provider] - Follow up as needed TRAVEL OUTSIDE OF THE [place] IN LAST 30 DAYS: No COUNTRY TRAVELED TO/FROM: NONE - HPI Severity: Moderate Context: 38 year old female with h/o anxiety, adhd, ms, surgical menopause is here with chest pain over the last hour. No fever or chills. Nonsmoker. Pain described as sharp is left sternal border and wraps around left breast. No injury. Works as [employer]. Exacerbated by: Denies Relieved by: Denies - Related Data Allergies/Adverse Reactions: iodine [Iodine] Allergy (Severe, Verified 05/21/19 21:52) Anaphylaxis nitrofurantoin [From Macrobid] Allergy (Verified 05/21/19 21:52) nitrofurantoin macrocrystalline [From Macrobid] Allergy (Verified 05/21/19 21:52) Sulfa (Sulfonamide Antibiotics) Adverse Reaction (Intermediate, Verified 05/21/19 21:52) VOMITING Past Medical History - Social History Smoking Status: Never Smoker Family History: CAD, DM, Hyperlipidemia, Hypertension, Malignancy Patient has suicidal ideation: No Patient has homicidal ideation: No - Past Medical History Cardiac Medical History: Denies: Hx Heart Attack, Hx Hypertension Pulmonary Medical History: Reports: Hx Asthma, Hx Pneumonia - 2008 Denies: Hx Bronchitis, Hx COPD Neurological Medical History: Reports: Hx Migraine, Hx Seizures Renal/ Medical History: Denies: Hx Peritoneal Dialysis Malignancy Medical History: Reports: Hx Cervical Cancer Musculoskeletal Medical History: Denies Hx Arthritis Psychiatric Medical History: Reports: Hx Anxiety, Hx Attention Deficit Hyperactivity Disorder, Hx Bipolar Disorder Past Surgical History: Reports: Hx Abdominal Surgery - Abdominal plastic, Hx Appendectomy, Hx Gynecologic Surgery - Mass removed from Fallopian Tube;, Hx Hysterectomy - Immunizations Immunizations up to date: Yes Hx Diphtheria, Pertussis, Tetanus Vaccination: Yes Review of Systems - Review of Systems Constitutional: No symptoms reported EENT: No symptoms reported Cardiovascular: No symptoms reported Respiratory: No symptoms reported Gastrointestinal: No symptoms reported Genitourinary: No symptoms reported Female Genitourinary: No symptoms reported Musculoskeletal: No symptoms reported Skin: No symptoms reported Hematologic/Lymphatic: No symptoms reported Neurological/Psychological: No symptoms reported Physical Exam - Vital signs Vitals: Temp Pulse Resp BP Pulse Ox 98.3 F 96 16 112/77 100 05/21/19 21:51 05/21/19 21:51 05/21/19 21:51 05/21/19 21:51 05/21/19 21:51 Interpretation: Normal - General General appearance: Appears well, Alert - HEENT Head: Normocephalic, Atraumatic Eyes: Normal Pupils: PERRL - Respiratory Respiratory status: No respiratory distress Chest status: Nontender Breath sounds: Normal Chest palpation: Tender - ttp without deformity. No rash. No sub q emphysema. - Cardiovascular Rhythm: Regular Heart sounds: Normal auscultation Murmur: No - Abdominal Inspection: Normal Distension: No distension Bowel sounds: Normal Tenderness: Nontender Organomegaly: No organomegaly - Back Back: Normal, Nontender - Extremities General upper extremity: Normal inspection, Nontender, Normal color, Normal ROM, Normal temperature General lower extremity: Normal inspection, Nontender, Normal color, Normal ROM, Normal temperature, Normal weight bearing. No: Di's sign - Neurological Neuro grossly intact: Yes Cognition: Normal Orientation: AAOx4 Myranda Coma Scale Eye Opening: Spontaneous Sidney Coma Scale Verbal: Oriented [place] Coma Scale Motor: Obeys Commands Sidney Coma Scale Total: 15 Speech: Normal Motor strength normal: LUE, RUE, LLE, RLE Sensory: Normal - Psychological Associated symptoms: Normal affect, Normal mood - Skin Skin Temperature: Warm Skin Moisture: Dry Skin Color: Normal Course - Vital Signs Vital signs: Temp Pulse Resp BP Pulse Ox 98.3 F 96 13 124/84 100 05/22/19 00:25 05/21/19 21:51 05/22/19 00:20 05/22/19 00:20 05/22/19 00:20 - Laboratory Result Diagrams: 05/21/19 22:17 05/21/19 22:17 Laboratory results interpreted by me: 05/21/19 22:17 WBC 14.4 H Absolute Neuts (auto) 8.8 H - Diagnostic Test Radiology reviewed: Reports reviewed - NSR NL [place] [address] elevation or depression. my interpretation. Discharge - Discharge Clinical Impression: Chest wall pain Condition: Good Disposition: HOME, SELF-CARE Instructions: Anxiety ([facility]), Chest Wall Pain ([facility]) Additional Instructions: See your doctor in follow up. Rest. Take your medicine as directed. Please return here for any problems or any concerns. Take tylenol or motrin for pain. Referrals: SADE MOORE FNP-C [Primary Care Provider] - Follow up as needed
[2019-05-21 22:34] LABS: ABSOLUTE EOSINOPHILS # (AUTO) 0.1 10^3/uL (0.0-0.6); ABSOLUTE LYMPHOCYTES (AUTO) 4.2 10^3/uL (0.5-4.7); ABSOLUTE MONOCYTES (AUTO) 1.2 10^3/uL (0.1-1.4); ABSOLUTE NEUT (AUTO) 8.8 10^3/uL (1.7-8.2); BASOPHILS % (AUTO) 0.3 % (0-2); HEMATOCRIT 40.1 % (36.0-47.0); HEMOGLOBIN 13.5 g/dL (12.0-15.5); MEAN CORPUSCULAR HEMOGLOBIN 30.3 pg (27.0-33.4); MEAN CORPUSCULAR HGB CONC 33.6 g/dL (32.0-36.0); MEAN CORPUSCULAR VOLUME 90 fl (80-97); MONOCYTES % (AUTO) 8.5 % (3-13); PLATELET COUNT 402 10^3/uL (150-450); RED BLOOD COUNT 4.44 10^6/uL (3.72-5.28); RED CELL DISTRIBUTION WIDTH 13.6 % (11.5-14.0); SEGMENTED NEUTROPHILS % (AUTO) 61.2 % (42-78); TOTAL CELLS COUNTED % (AUTO) 100 %; WHITE BLOOD COUNT 14.4 10^3/uL (4.0-10.5)
--- NOTE | 2019-05-21 22:42 | RADIOLOGY REPORT (SQ) ---
XR CHEST 1 VIEW CLINICAL STATEMENT: htn COMPARISON: 04/14/2016 FINDINGS: Cardiomediastinal silhouette is within normal limits. There is no focal lung consolidation or pleural effusion. No evidence of pulmonary edema or pneumothorax. IMPRESSION: No acute cardiopulmonary disease.
[2019-05-21 22:46] LABS: ALBUMIN 4.2 g/dL (3.5-5.0); ALKALINE PHOSPHATASE 52 U/L (38-126); ANION GAP 9 (5-19); ASPARTATE AMINO TRANSFERASE 19 U/L (14-36); BILIRUBIN,DIRECT 0.1 mg/dL (0.0-0.4); BILIRUBIN,TOTAL 0.4 mg/dL (0.2-1.3); BLOOD UREA NITROGEN 8 mg/dL (7-20); CALCIUM 9.4 mg/dL (8.4-10.2); CARBON DIOXIDE 28 mmol/L (22-30); CHLORIDE 102 mmol/L (98-107); CREATINE KINASE 104 U/L (30-135); GLUCOSE 96 mg/dL (75-110); POTASSIUM 4.1 mmol/L (3.6-5.0); TOTAL PROTEIN 6.8 g/dL (6.3-8.2)
[2019-05-21 22:57] LABS: CREATINE KINASE MB 1.43 ng/mL (<4.55)
[2019-05-21 22:59] LABS: TROPONIN I < 0.012 ng/mL
--- NOTE | 2019-05-21 23:52 | EKG REPORT ---
SEVERITY:- NORMAL ECG - SINUS RHYTHM : Confirmed by: Cydney Veliz MD 21-May-2019 23:52:17
[2019-05-22] MEDS ORDERED: LORAZEPAM 1 MG TABLET PO ONE (00:09)
[2019-05-22 00:34] VITALS: BP 124/84
== END 2019-05-22 00:35 | disposition home or self-care (01) ==
LOC: ER 21:37
DX: R07.89 Other chest pain (principal); Z88.2 Allergy status to sulfonamides; Z78.0 Asymptomatic menopausal state
CPT/HCPCS: 93005; 99285; 36415; 82553; 82550; 83690; 85025; 80053; 84484; 71045; 93010; A9270

== ENCOUNTER 2019-12-21 16:00 | Emergency (ER) | payer MEDICARE, MEDICAID ==
[2019-12-21 16:05] VITALS: BP 117/79
[2019-12-21] MEDS ORDERED: ONDANSETRON 4 MG TAB.RAPDIS PO ONE (16:08)
--- NOTE | 2019-12-21 16:11 | ER Document Report ---
HPI - HPI Patient complains to provider of: Head injury nausea work note Time Seen by Provider: 12/21/19 16:05 Onset: This afternoon Onset/Duration: Sudden Context: 39-year-old female presents emergency department with reports that she ran around the corner ran into her boyfriend's barbell weights. She hit the right side of her head. She denies change in LOC. She reports it really hurt. She reports now she is nauseated and called out work at [employer] and was told that she needed a doctor's note. Patient did take Tylenol for the head pain. Patient drove herself here. No other complaint such as fever vomiting diarrhea. Patient reports she does still feel nauseated. Associated Symptoms: None Exacerbated by: Denies Relieved by: Denies Similar symptoms previously: No Recently seen / treated by doctor: No - REPRODUCTIVE Reproductive: DENIES: : Past Medical History - General Information source: Patient Last Menstrual Period: Hysterectomy - Social History Smoking Status: Unknown if Ever Smoked Frequency of alcohol use: None Drug Abuse: None Occupation: [employer] Lives with: Family Family History: CAD, DM, Hyperlipidemia, Hypertension, Malignancy Patient has suicidal ideation: No Patient has homicidal ideation: No - Past Medical History Cardiac Medical History: Denies: Hx Heart Attack, Hx Hypertension Pulmonary Medical History: Reports: Hx Asthma, Hx Pneumonia - 2008 Denies: Hx Bronchitis, Hx COPD Neurological Medical History: Reports: Hx Migraine, Hx Seizures Renal/ Medical History: Denies: Hx Peritoneal Dialysis Malignancy Medical History: Reports: Hx Cervical Cancer Musculoskeletal Medical History: Denies Hx Arthritis Psychiatric Medical History: Reports: Hx Anxiety, Hx Attention Deficit Hyperactivity Disorder, Hx Bipolar Disorder Past Surgical History: Reports: Hx Abdominal Surgery - Abdominal plastic, Hx Appendectomy, Hx Gynecologic Surgery - Mass removed from Fallopian Tube;, Hx Hysterectomy - Immunizations Immunizations up to date: Yes Hx Diphtheria, Pertussis, Tetanus Vaccination: Yes Vertical Provider Document - CONSTITUTIONAL Agree With Documented VS: Yes Exam Limitations: No Limitations General Appearance: WD/WN, No Apparent Distress - INFECTION CONTROL TRAVEL OUTSIDE OF THE [place] IN LAST 30 DAYS: No - HEENT HEENT: Atraumatic, Normocephalic, PERRLA. negative: Conjuctival Injection - NECK Neck: Normal Inspection, Supple - RESPIRATORY Respiratory: Breath Sounds Normal, No Respiratory Distress - CARDIOVASCULAR Cardiovascular: Regular Rate, Regular Rhythm - MUSCULOSKELETAL/EXTREMETIES Musculoskeletal/Extremeties: NGA LUO - NEURO Level of Consciousness: Awake, Alert, Appropriate Motor/Sensory: No Motor Deficit - DERM Integumentary: Warm, Dry Course - Re-evaluation Re-evalutation: 12/21/19 16:14 39-year-old female presents after she ran into her boyfriend's [employer]. No change in LOC. She reports she really hurt her head and now she is nauseated. She had to call out for work at [employer] and they told her she needed a doctor's note. Patient was instructed on Zofran now for nausea. Instructed on head injuries importance to monitor symptoms, monitor for confusion. She was instructed to return for confusion vomiting concerns. She verbalized understanding. She was given a work note. - Vital Signs Vital signs: Temp Pulse Resp BP Pulse Ox 98.3 F 96 18 117/79 98 12/21/19 16:04 12/21/19 16:04 12/21/19 16:04 12/21/19 16:04 12/21/19 16:04 Discharge - Discharge Clinical Impression: Head injury Qualifiers: Encounter type: initial encounter Qualified Code(s): S09.90XA - Unspecified i njury of head, initial encounter Condition: Stable Disposition: HOME, SELF-CARE Instructions: Head Injury Precautions ([facility]) Additional Instructions: *You have been evaluated post head injury with nausea *Rest your brain, avoid TV /computers for the next 24 to 48 hours. *Follow up with a primary care provider within one week for recheck *Return to emergency department for confusion vomiting, concerns, needs Forms: Return to Work Referrals: SADE MOORE FNP-C [Primary Care Provider] - Follow up in 3-5 days
== END 2019-12-21 16:19 | disposition home or self-care (01) ==
LOC: ER 16:00
DX: S09.90XA Unspecified injury of head, initial encounter (principal); R51 Headache; W22.8XXA Striking against or struck by other objects, initial encounter; R11.0 Nausea; J45.909 Unspecified asthma, uncomplicated
CPT/HCPCS: 99283; A9270; S0119

== ENCOUNTER 2020-05-16 21:50 | Emergency (ER) | payer MEDICARE, MEDICAID ==
[2020-05-16] MEDS ORDERED: KETOROLAC TROMETHAMINE INJ/PF 30 MG/1 ML SDV IV ONE (22:22)
[2020-05-16] MEDS ORDERED: NORMAL SALINE 1000 ML 1,000 ML IV ONE (22:24)
--- NOTE | 2020-05-16 22:35 | ER Document Report ---
ED Medical Screen (RME) - General Chief Complaint: Urinary Problem Stated Complaint: URINATING BLOOD,BILATERAL FLANK PAIN Time Seen by Provider: 05/16/20 22:16 Notes: Patient is a 39-year-old female who presents emergency department with a chief complaint of abdominal pain and flank pain. Patient states that she had dysuria for the past few days. Today she ended up urinating blood. When she also developed flank pain. Patient has history of kidney stones in the past. Exam: Right CVA tenderness noted. I have greeted and performed a rapid initial assessment of this patient. A comprehensive ED assessment and evaluation of the patient, analysis of test results and completion of medical decision making process will be conducted by an additional ED providers. TRAVEL OUTSIDE OF THE [place] IN LAST 30 DAYS: No - Related Data Allergies/Adverse Reactions: iodine [Iodine] Allergy (Severe, Verified 12/21/19 16:04) Anaphylaxis nitrofurantoin [From Macrobid] Allergy (Verified 12/21/19 16:04) nitrofurantoin macrocrystalline [From Macrobid] Allergy (Verified 12/21/19 16:04) Sulfa (Sulfonamide Antibiotics) Adverse Reaction (Intermediate, Verified 12/21/19 16:04) VOMITING Past Medical History - Past Medical History Cardiac Medical History: Denies: Hx Heart Attack, Hx Hypertension Pulmonary Medical History: Reports: Hx Asthma, Hx Pneumonia - 2008 Denies: Hx Bronchitis, Hx COPD Neurological Medical History: Reports: Hx Migraine, Hx Seizures Renal/ Medical History: Denies: Hx Peritoneal Dialysis Malignancy Medical History: Reports: Hx Cervical Cancer Musculoskeltal Medical History: Denies Hx Arthritis Psychiatric Medical History: Reports: Hx Anxiety, Hx Attention Deficit Hyperactivity Disorder, Hx Bipolar Disorder Past Surgical History: Reports: Hx Abdominal Surgery - Abdominal plastic, Hx Appendectomy, Hx Gynecologic Surgery - Mass removed from Fallopian Tube;, Hx Hysterectomy - Immunizations Immunizations up to date: Yes Hx Diphtheria, Pertussis, Tetanus Vaccination: Yes Physical Exam - Vital signs Vitals: Temp Pulse Resp BP Pulse Ox 98.1 F 97 22 H 123/85 98 05/16/20 21:56 05/16/20 21:56 05/16/20 21:56 05/16/20 21:56 05/16/20 21:56 Course - Vital Signs Vital signs: Temp Pulse Resp BP Pulse Ox 98.1 F 97 22 H 123/85 98 05/16/20 21:56 05/16/20 21:56 05/16/20 21:56 05/16/20 21:56 05/16/20 21:56
[2020-05-16 23:00] LABS: APPEARANCE,URINE TURBID; BILIRUBIN,URINE NEGATIVE (NEGATIVE); COLOR,URINE YELLOW; GLUCOSE, URINE NEGATIVE (NEGATIVE); KETONES,URINE TRACE mg/dL (NEGATIVE); LEUKOCYTE ESTERASE,URINE LARGE (NEGATIVE); NITRITE,URINE NEGATIVE (NEGATIVE); PROTEIN,URINE 100 mg/dL (NEGATIVE); URINE SPECIFIC GRAVITY 1.039
[2020-05-16] MEDS ORDERED: MORPHINE SULFATE 10 MG/ML INJ IV ONE (23:11)
[2020-05-16] MEDS ORDERED: CEFTRIAXONE 1 GM/D5W RTU 1 GM/50 ML RTUPB IV ONE (23:11)
[2020-05-16] MEDS ORDERED: ONDANSETRON HCL INJ/PF 4 MG/2 ML SDV IV ONE (23:11)
--- NOTE | 2020-05-16 23:14 | ER Document Report ---
ED GI/ - General Chief Complaint: Urinary Problem Stated Complaint: URINATING BLOOD,BILATERAL FLANK PAIN Time Seen by Provider: 05/16/20 22:16 Primary Care Provider: SAM REYNOLDS MD [Primary Care Provider] - Follow up as needed Notes: Patient is a 39-year-old female who comes emergency department for chief complai nt of right sided abdominal pain that radiates around to the right flank. Patient states that for the past few days she has had some mild discomfort with urination and she has felt slightly under the weather, however tonight she suddenly started having sharp pain in her abdomen radiating to the flanks that "came out of nowhere". She reports nausea but denies vomiting. She did start noticing hematuria. She denies fever. She denies vaginal bleeding or discharge. She states she has passed several kidney stones in the past, she has never had surgery for these. Patient has a history of appendectomy and hysterectomy as well. TRAVEL OUTSIDE OF THE [place] IN LAST 30 DAYS: No - Related Data Allergies/Adverse Reactions: iodine [Iodine] Allergy (Severe, Verified 12/21/19 16:04) Anaphylaxis nitrofurantoin [From Macrobid] Allergy (Verified 12/21/19 16:04) nitrofurantoin macrocrystalline [From Macrobid] Allergy (Verified 12/21/19 16:04) Sulfa (Sulfonamide Antibiotics) Adverse Reaction (Intermediate, Verified 12/21/19 16:04) VOMITING Past Medical History - General Information source: Patient - Social History Smoking Status: Never Smoker Frequency of alcohol use: None Drug Abuse: None Lives with: Family Family History: CAD, DM, Hyperlipidemia, Hypertension, Malignancy Patient has homicidal ideation: No - Past Medical History Cardiac Medical History: Denies: Hx Heart Attack, Hx Hypertension Pulmonary Medical History: Reports: Hx Asthma, Hx Pneumonia - 2008 Denies: Hx Bronchitis, Hx COPD Neurological Medical History: Reports: Hx Migraine, Hx Seizures Renal/ Medical History: Denies: Hx Peritoneal Dialysis Malignancy Medical History: Reports: Hx Cervical Cancer Musculoskeletal Medical History: Denies Hx Arthritis Psychiatric Medical History: Reports: Hx Anxiety, Hx Attention Deficit Hyperactivity Disorder, Hx Bipolar Disorder Past Surgical History: Reports: Hx Abdominal Surgery - Abdominal plastic, Hx Appendectomy, Hx Gynecologic Surgery - Mass removed from Fallopian Tube;, Hx Hysterectomy - Immunizations Immunizations up to date: Yes Hx Diphtheria, Pertussis, Tetanus Vaccination: Yes Review of Systems - Review of Systems Constitutional: No symptoms reported EENT: No symptoms reported Cardiovascular: No symptoms reported Respiratory: No symptoms reported Gastrointestinal: See HPI Genitourinary: See HPI Female Genitourinary: No symptoms reported Musculoskeletal: No symptoms reported Skin: No symptoms reported Hematologic/Lymphatic: No symptoms reported Neurological/Psychological: No symptoms reported Physical Exam - Vital signs Vitals: Temp Pulse Resp BP Pulse Ox 98.1 F 97 22 H 123/85 98 05/16/20 21:56 05/16/20 21:56 05/16/20 21:56 05/16/20 21:56 05/16/20 21:56 - Notes Notes: GENERAL: Patient appears mildly uncomfortable and restless but no severe distress is noted HEAD: Normocephalic, atraumatic. EYES: Pupils equal, round, and reactive to light. Extraocular movements intact. ENT: Oral mucosa moist, tongue midline. Oropharynx unremarkable. Airway patent. LUNGS: Clear to auscultation bilaterally, no wheezes, rales, or rhonchi. No respiratory distress. Non-tender chest wall. HEART: Regular rate and rhythm. No murmur ABDOMEN: Soft, non-tender. Non-distended. Bowel sounds present in all 4 quadrants. GENITOURINARY: Deferred EXTREMITIES: Moves all 4 extremities spontaneously. No edema, normal radial and dorsalis pedis pulses bilaterally. No cyanosis. BACK: Right-sided CVA tenderness noted, left is unremarkable. No cervical, thoracic, lumbar midline tenderness. No saddle anesthesia, normal distal neurovascular exam. Moves all extremities in full range of motion. NEUROLOGICAL: Alert and oriented x3. Normal speech. Cranial nerves II through XII grossly intact. Strength 5/5 in all extremities. PSYCH: Normal affect, normal mood. SKIN: Warm, dry, normal turgor. No rashes or lesions noted. Course - Re-evaluation Re-evalutation: Patient appears mildly uncomfortable, she has right CVA tenderness, abdomen is actually soft and benign. Vital signs unremarkable. Patient was medicated for her symptoms. Afterwards she significantly improved. CBC shows my leukocytosis, nonspecific, chemistry unremarkable, urinalysis shows infection, this was cultured. Because of her infection, right-sided tenderness, suddenly worsening pain today, and history of kidney stones decision was made to perform a CAT scan to rule out obstructing ureterolithiasis. CT does not show any acute findings, I suspect this is pyelonephritis, discussed treatment, follow-up, return precautions. Patient feels much improved, states understanding and agreement, stable and well-appearing at time of discharge. - Vital Signs Vital signs: Temp Pulse Resp BP Pulse Ox 97.9 F 78 15 104/68 100 05/17/20 01:04 05/17/20 01:04 05/17/20 01:04 05/17/20 01:04 05/17/20 01:04 - Laboratory Result Diagrams: 05/16/20 22:45 05/16/20 22:45 Laboratory results interpreted by me: 05/16/20 05/16/20 05/16/20 22:12 22:45 22:45 WBC 11.2 H Sodium 136.8 L Urine Protein 100 H Urine Ketones TRACE H Urine Blood LARGE H Urine Urobilinogen 4.0 H Ur Leukocyte Esterase LARGE H Urine Ascorbic Acid 20 H Discharge - Discharge Clinical Impression: Flank pain, Nausea, Dysuria Abdominal pain Qualifiers: Abdominal location: lower abdomen, unspecified Qualified Code(s): R10.30 - Lower abdominal pain, unspecified Condition: Stable Disposition: HOME, SELF-CARE Instructions: Oral Narcotic Medication ([facility]) Additional Instructions: Your evaluation is consistent with pyelonephritis, kidney infection. Take the antibiotics as prescribed to completion, take the pain and nausea medication if needed, drink plenty of fluids and rest. Follow-up with primary care. Return if you worsen including vomiting, severe worsening pain, spiking fevers, or any other concerning or worsening symptoms. Prescriptions: Cephalexin Monohydrate [Keflex 500 mg Capsule] 500 mg PO QID 10 Days #40 capsule Ondansetron [Zofran Odt 4 mg Tablet] 1 - 2 tab PO Q4H PRN #15 tab.rapdis PRN Reason: For Nausea/Vomiting Forms: Return to Work Referrals: SAM REYNOLDS MD [Primary Care Provider] - Follow up as needed
[2020-05-16 23:26] LABS: ALKALINE PHOSPHATASE 64 U/L (38-126); ANION GAP 8 (5-19); ASPARTATE AMINO TRANSFERASE 20 U/L (14-36); BILIRUBIN,DIRECT 0.3 mg/dL (0.0-0.4); BILIRUBIN,TOTAL 0.4 mg/dL (0.2-1.3); BLOOD UREA NITROGEN 15 mg/dL (7-20); CALCIUM 9.4 mg/dL (8.4-10.2); CARBON DIOXIDE 26 mmol/L (22-30); CHLORIDE 103 mmol/L (98-107); GLUCOSE 92 mg/dL (75-110); POTASSIUM 4.3 mmol/L (3.6-5.0); TOTAL PROTEIN 6.7 g/dL (6.3-8.2)
[2020-05-16 23:35] LABS: ABSOLUTE EOSINOPHILS # (AUTO) 0.2 10^3/uL (0.0-0.6); ABSOLUTE LYMPHOCYTES (AUTO) 3.8 10^3/uL (0.5-4.7); ABSOLUTE MONOCYTES (AUTO) 0.9 10^3/uL (0.1-1.4); ABSOLUTE NEUT (AUTO) 6.2 10^3/uL (1.7-8.2); BASOPHILS % (AUTO) 0.4 % (0-2); EOSINOPHILS % (AUTO) 1.4 % (0-6); HEMATOCRIT 38.4 % (36.0-47.0); HEMOGLOBIN 13.5 g/dL (12.0-15.5); LYMPHOCYTES % (AUTO) 34.2 % (13-45); MEAN CORPUSCULAR HEMOGLOBIN 31.5 pg (27.0-33.4); MEAN CORPUSCULAR HGB CONC 35.2 g/dL (32.0-36.0); MEAN CORPUSCULAR VOLUME 89 fl (80-97); MONOCYTES % (AUTO) 8.4 % (3-13); PLATELET COUNT 336 10^3/uL (150-450); SEGMENTED NEUTROPHILS % (AUTO) 55.6 % (42-78); TOTAL CELLS COUNTED % (AUTO) 100 %; WHITE BLOOD COUNT 11.2 10^3/uL (4.0-10.5)
--- NOTE | 2020-05-17 00:03 | RADIOLOGY REPORT (SQ) ---
CLINICAL HISTORY: right flank pain, right abd pain, UTI, hx stones COMPARISON: 11/18/2016. TECHNIQUE: CT ABDOMEN PELVIS WITHOUT IV CONTRAST on 05/16/2020 11:11 PM CDT This exam was performed according to our departmental dose-optimization program, which includes automated exposure control, adjustment of the mA and/or kV according to patient size and/or use of iterative reconstruction technique. FINDINGS: Lower lungs are clear. Abdomen: The liver is normal in appearance. There is no biliary dilatation. Gallbladder is normal in appearance. The pancreas and spleen are normal in appearance. The adrenal glands and kidneys are unremarkable. Abdominal aorta is normal in course and caliber without aneurysm. There is no free air. There is no retroperitoneal adenopathy. Pelvis: There is no bowel obstruction. Urinary bladder is unremarkable. There is no free fluid. Uterus is normal in size. Appendix is not seen. Skeleton: There are no acute osseous findings. No suspicious bony lesions. IMPRESSION: No acute process.
[2020-05-17] MEDS ORDERED: ONDANSETRON ODT 4 MG TAB (6 TAB/ER DISP) PO PRN (00:47)
[2020-05-17] MEDS ORDERED: HYDROCODONE/ACETAMINOPHEN 5-325 MG (6 TAB/ER DISP) PO PRN (00:47)
[2020-05-17 01:08] VITALS: BP 104/68
== END 2020-05-17 01:05 | disposition home or self-care (01) ==
LOC: ER 21:50
DX: R10.9 Unspecified abdominal pain (principal); R11.0 Nausea; R30.0 Dysuria; R10.30 Lower abdominal pain, unspecified; R39.198 Other difficulties with micturition; R31.9 Hematuria, unspecified; J45.909 Unspecified asthma, uncomplicated
CPT/HCPCS: 99284; 96361; 96375; 96365; 36415; 87086; 85025; 87088; 80053; 81001; 74176; J1885; J2270; J2405; J7030; J0696; A9270 ×2; 87186

== ENCOUNTER 2020-06-23 18:17 | Emergency (ER) | payer MEDICARE, MEDICAID ==
[2020-06-23] MEDS ORDERED: ONDANSETRON 4 MG TAB.RAPDIS PO ONE (19:30)
[2020-06-23] MEDS ORDERED: NORMAL SALINE 1000 ML 1,000 ML IV ONE (19:30)
[2020-06-23] MEDS ORDERED: KETOROLAC TROMETHAMINE 60 MG/2 ML SDV IM ONE (19:30)
--- NOTE | 2020-06-23 19:49 | ER Document Report ---
ED Medical Screen (RME) - General Chief Complaint: Urinary Problem Stated Complaint: FLANK PAIN Time Seen by Provider: 06/23/20 19:24 Primary Care Provider: SAM REYNOLDS MD [Primary Care Provider] - Follow up as needed TRAVEL OUTSIDE OF THE [place] IN LAST 30 DAYS: No - HPI Notes: 06/23/20 19:33 39-year-old female with nephrolithiasis presents to the emergency room today today with complaints of R flank pain and LLQ abd pain x 3 days. Reports pain is 5 out of 5, sharp and stabbing. Reports nausea and vomiting, does report fevers and chills. Last menstrual cycle was 2007, states she had a complete hysterectomy. Patient was recently seen a few weeks ago for similar symptoms, was discharged home with Keflex and Zofran, was told that she likely already passed a stone and has a kidney infection. I have greeted and performed a rapid initial assessment of this patient. A comprehensive ED assessment and evaluation of the patient, analysis of test results and completion of the medical decision making process will be conducted by additional ED providers. PHYSICAL EXAMINATION: GENERAL: Well-appearing, well-nourished and in no acute distress. CV: s1, s2 regular LUNGS: No respiratory distress abd: LLQ abd, R > L flank pain. Musculoskeletal: Normal range of motion - Related Data Allergies/Adverse Reactions: iodine [Iodine] Allergy (Severe, Verified 06/23/20 19:20) Anaphylaxis nitrofurantoin [From Macrobid] Allergy (Verified 06/23/20 19:20) nitrofurantoin macrocrystalline [From Macrobid] Allergy (Verified 06/23/20 19:20) Sulfa (Sulfonamide Antibiotics) Adverse Reaction (Intermediate, Verified 06/23/20 19:20) VOMITING Home Medications: SEIZURE DISORDER. MS Past Medical History - Social History Frequency of alcohol use: None Drug Abuse: None - Past Medical History Cardiac Medical History: Denies: Hx Heart Attack, Hx Hypertension Pulmonary Medical History: Reports: Hx Asthma, Hx Pneumonia - 2008 Denies: Hx Bronchitis, Hx COPD Neurological Medical History: Reports: Hx Migraine, Hx Seizures Renal/ Medical History: Denies: Hx Peritoneal Dialysis Malignancy Medical History: Reports: Hx Cervical Cancer Musculoskeltal Medical History: Denies Hx Arthritis Psychiatric Medical History: Reports: Hx Anxiety, Hx Attention Deficit Hyperactivity Disorder, Hx Bipolar Disorder Past Surgical History: Reports: Hx Abdominal Surgery - Abdominal plastic, Hx Appendectomy, Hx Gynecologic Surgery - Mass removed from Fallopian Tube;, Hx Hysterectomy - Immunizations Immunizations up to date: Yes Hx Diphtheria, Pertussis, Tetanus Vaccination: Yes Physical Exam - Vital signs Vitals: Temp Pulse Resp BP Pulse Ox 98.4 F 100 16 117/80 99 06/23/20 18:22 06/23/20 18:22 06/23/20 18:22 06/23/20 18:22 06/23/20 18:22 Course - Vital Signs Vital signs: Temp Pulse Resp BP Pulse Ox 98.4 F 100 16 117/80 99 06/23/20 18:22 06/23/20 18:22 06/23/20 18:22 06/23/20 18:22 06/23/20 18:22 Doctor's Discharge - Discharge Referrals: SAM REYNOLDS MD [Primary Care Provider] - Follow up as needed
[2020-06-23 20:57] LABS: ABSOLUTE EOSINOPHILS # (AUTO) 0.1 10^3/uL (0.0-0.6); ABSOLUTE LYMPHOCYTES (AUTO) 3.5 10^3/uL (0.5-4.7); ABSOLUTE MONOCYTES (AUTO) 0.7 10^3/uL (0.1-1.4); ABSOLUTE NEUT (AUTO) 4.7 10^3/uL (1.7-8.2); BASOPHILS % (AUTO) 0.4 % (0-2); EOSINOPHILS % (AUTO) 1.1 % (0-6); HEMATOCRIT 42.5 % (36.0-47.0); HEMOGLOBIN 14.6 g/dL (12.0-15.5); LYMPHOCYTES % (AUTO) 38.6 % (13-45); MEAN CORPUSCULAR HEMOGLOBIN 31.7 pg (27.0-33.4); MEAN CORPUSCULAR HGB CONC 34.4 g/dL (32.0-36.0); MEAN CORPUSCULAR VOLUME 92 fl (80-97); MONOCYTES % (AUTO) 7.5 % (3-13); PLATELET COUNT 328 10^3/uL (150-450); RED BLOOD COUNT 4.62 10^6/uL (3.72-5.28); RED CELL DISTRIBUTION WIDTH 13.5 % (11.5-14.0); SEGMENTED NEUTROPHILS % (AUTO) 52.4 % (42-78); TOTAL CELLS COUNTED % (AUTO) 100 %; WHITE BLOOD COUNT 8.9 10^3/uL (4.0-10.5)
[2020-06-23 21:11] LABS: APPEARANCE,URINE SLIGHTLY-CLOUDY; BILIRUBIN,URINE NEGATIVE (NEGATIVE); COLOR,URINE YELLOW; GLUCOSE, URINE NEGATIVE (NEGATIVE); KETONES,URINE NEGATIVE (NEGATIVE); LEUKOCYTE ESTERASE,URINE NEGATIVE (NEGATIVE); NITRITE,URINE NEGATIVE (NEGATIVE); PROTEIN,URINE NEGATIVE (NEGATIVE); URINE SPECIFIC GRAVITY 1.023; UROBILINOGEN,URINE NEGATIVE mg/dL (<2.0)
[2020-06-23 21:16] LABS: ALBUMIN 4.5 g/dL (3.5-5.0); ALKALINE PHOSPHATASE 68 U/L (38-126); ANION GAP 9 (5-19); ASPARTATE AMINO TRANSFERASE 29 U/L (14-36); BILIRUBIN,DIRECT 0.1 mg/dL (0.0-0.4); BILIRUBIN,TOTAL 0.3 mg/dL (0.2-1.3); BLOOD UREA NITROGEN 11 mg/dL (7-20); CALCIUM 9.9 mg/dL (8.4-10.2); CARBON DIOXIDE 28 mmol/L (22-30); CHLORIDE 103 mmol/L (98-107); GLUCOSE 96 mg/dL (75-110); POTASSIUM 4.8 mmol/L (3.6-5.0); TOTAL PROTEIN 7.1 g/dL (6.3-8.2)
--- NOTE | 2020-06-23 23:16 | RADIOLOGY REPORT (SQ) ---
CLINICAL HISTORY: 3 DAYS OF LOW BACK PAIN, FREQUENCY OF URINE, FAILURE TO EMPTY BLADDER COMPARISON: 05/16/2020. TECHNIQUE: CT ABDOMEN PELVIS WITHOUT IV CONTRAST on 06/23/2020 10:45 PM BIOMETRICS ANALYST This exam was performed according to our departmental dose-optimization program, which includes automated exposure control, adjustment of the mA and/or kV according to patient size and/or use of iterative reconstruction technique. FINDINGS: Lower lungs are clear. Abdomen: The liver is normal in appearance. There is no biliary dilatation. Gallbladder is normal in appearance. The pancreas and spleen are normal in appearance. The adrenal glands and kidneys are unremarkable. Abdominal aorta is normal in course and caliber without aneurysm. There is no free air. There is no retroperitoneal adenopathy. Pelvis: There is no bowel obstruction. Urinary bladder is unremarkable. There is no free fluid. Hysterectomy was performed. There is a small left ovarian cyst measuring 3 cm. Appendix is not well seen. There is no pericecal inflammation. Skeleton: There are no acute osseous findings. No suspicious bony lesions. IMPRESSION: No definite acute process.
[2020-06-23] MEDS ORDERED: PHENAZOPYRIDINE HCL 200 MG TABLET PO ONE (23:36)
[2020-06-23] MEDS ORDERED: CEPHALEXIN 500 MG CAPSULE PO ONE (23:36)
[2020-06-23] MEDS ORDERED: ONDANSETRON ODT 4 MG TAB (6 TAB/ER DISP) PO PRN (23:38)
--- NOTE | 2020-06-23 23:42 | ER Document Report ---
ED General - General Chief Complaint: Urinary Problem Stated Complaint: FLANK PAIN Time Seen by Provider: 06/23/20 19:24 Primary Care Provider: SAM REYNOLDS MD [Primary Care Provider] - Follow up as needed TRAVEL OUTSIDE OF THE [place] IN LAST 30 DAYS: No - HPI Notes: Patient is a 39-year-old female presents emergency department for evaluation of right flank pain, suprapubic pain, urinary frequency. She states she feels like is not emptying her bladder. She has urinate frequently, states she can always get a few drops out but it is painful intermittently. She reports intermittent hematuria for the last 36 hours. She denies any fevers or chills. She said nausea for the last week with 2 episodes of emesis today. Normal bowel movements. No vaginal discharge. She currently puts her pain at a 3 out of 5, to cramping and spasm type pain. - Related Data Allergies/Adverse Reactions: iodine [Iodine] Allergy (Severe, Verified 06/23/20 19:20) Anaphylaxis nitrofurantoin [From Macrobid] Allergy (Verified 06/23/20 19:20) nitrofurantoin macrocrystalline [From Macrobid] Allergy (Verified 06/23/20 19:20) Sulfa (Sulfonamide Antibiotics) Adverse Reaction (Intermediate, Verified 06/23/20 19:20) VOMITING Home Medications: Carbamazepine, Adderall Past Medical History - General Information source: Patient - Social History Smoking Status: Never Smoker Frequency of alcohol use: None Drug Abuse: None Family History: CAD, DM, Hyperlipidemia, Hypertension, Malignancy - Past Medical History Cardiac Medical History: Denies: Hx Heart Attack, Hx Hypertension Pulmonary Medical History: Reports: Hx Asthma, Hx Pneumonia - 2008 Denies: Hx Bronchitis, Hx COPD Neurological Medical History: Reports: Hx Migraine, Hx Seizures Renal/ Medical History: Denies: Hx Peritoneal Dialysis Malignancy Medical History: Reports: Hx Cervical Cancer Musculoskeletal Medical History: Denies Hx Arthritis, Reports Hx Multiple Sclerosis Psychiatric Medical History: Reports: Hx Anxiety, Hx Attention Deficit Hyperactivity Disorder, Hx Bipolar Disorder Past Surgical History: Reports: Hx Abdominal Surgery - Abdominal plastic, Hx Appendectomy, Hx Gynecologic Surgery - Mass removed from Fallopian Tube;, Hx Hysterectomy - Immunizations Immunizations up to date: Yes Hx Diphtheria, Pertussis, Tetanus Vaccination: Yes Review of Systems - Review of Systems Constitutional: No symptoms reported EENT: No symptoms reported Cardiovascular: No symptoms reported Respiratory: No symptoms reported Gastrointestinal: See HPI Genitourinary: See HPI Musculoskeletal: See HPI Skin: No symptoms reported Neurological/Psychological: No symptoms reported Physical Exam - Vital signs Vitals: Temp Pulse Resp BP Pulse Ox 98.4 F 100 16 117/80 99 06/23/20 18:22 06/23/20 18:22 06/23/20 18:22 06/23/20 18:22 06/23/20 18:22 - Notes Notes: Vital signs reviewed, please refer to chart. Head is normocephalic, atraumatic. Pupils equal round, reactive to light. Neck is supple without meningismus. Heart is regular rate and rhythm. Lungs are clear to auscultation bilaterally. Abdomen is soft, mild suprapubic tenderness without rebound or guarding, normoactive bowel sounds throughout. No CVA tenderness noted. Examination of the spine yields no midline tenderness or step-off. She does have some paraspinal musculature tenderness noted on the left lumbar spine, with negative straight leg raise bilaterally. Extremities without cyanosis, clubbing. Posterior calves are nontender. Peripheral pulses are equal. Skin is warm and dry. Patient is awake, alert, neurological exam is nonfocal. Course - Re-evaluation Re-evalutation: 06/23/20 23:39 Patient presents to emergency department for evaluation of lower back pain, suprapubic pain, urinary frequency and dysuria. She only has a small amount of blood in her urine with an acute cystitis. She is treated with Keflex, Pyridium. I will send her home with prescriptions for the same. Otherwise her CT is unremarkable. Her blood work shows no abnormality. She has no leukocytosis. She has no signs of, but her symptoms are most consistent pyelonephritis. I will send her home with close follow-up. She is to return the emergency department for worsening or new concerning symptoms of any sort. - Vital Signs Vital signs: Temp Pulse Resp BP Pulse Ox 98.4 F 100 16 103/80 99 06/23/20 18:22 06/23/20 18:22 06/23/20 18:22 06/23/20 22:31 06/23/20 18:22 - Laboratory Result Diagrams: 06/23/20 20:28 06/23/20 20:28 Laboratory results interpreted by me: 06/23/20 20:28 Urine Blood SMALL H Discharge - Discharge Clinical Impression: Acute cystitis Qualifiers: Hematuria presence: with hematuria Qualified Code(s): N30.01 - Acute cystitis with hematuria Nausea and vomiting Qualifiers: Vomiting type: unspecified Vomiting Intractability: non-intractable Qualified Code(s): R11.2 - Nausea with vomiting, unspecified Condition: Stable Disposition: HOME, SELF-CARE Instructions: Urinary Tract Infection ([facility]) Additional Instructions: Stay well-hydrated. Take antibiotics as prescribed. Use Pyridium as directed for bladder spasms and pain. Please note that this may stain contact lenses, room white sugars, and will change the bodily fluids to a bright orange color. Follow-up with your primary care provider next week. If you develop fevers, worsening vomiting, or any other new or concerning symptoms, please return immediately to the emergency department for evaluation. Referrals: SAM REYNOLDS MD [Primary Care Provider] - Follow up as needed
[2020-06-23 23:50] VITALS: BP 122/76
== END 2020-06-23 23:52 | disposition home or self-care (01) ==
LOC: ER 18:17
DX: N30.01 Acute cystitis with hematuria (principal); R11.2 Nausea with vomiting, unspecified; R10.9 Unspecified abdominal pain; R10.30 Lower abdominal pain, unspecified; R35.0 Frequency of micturition; J45.909 Unspecified asthma, uncomplicated; F90.9 Attention-deficit hyperactivity disorder, unspecified type; F31.9 Bipolar disorder, unspecified; R56.9 Unspecified convulsions; Z79.899 Other long term (current) drug therapy; Z87.892 Personal history of anaphylaxis; Z88.1 Allergy status to other antibiotic agents; Z88.2 Allergy status to sulfonamides
CPT/HCPCS: 99285; 96372; 96360; 36415; 84702; 83690; 85025; 80053; 81001; 74176; A9270 ×4; J1885; J7030; J3490; S0119